=== PATIENT | female | born 1960 | race Caucasian/White ===

== ENCOUNTER → 2022-01-03 | Outpatient (CLI) | payer MEDICARE ==
[~2022-01-03] MED LIST: ASPI81CH PO; ATOR40TA PO; DULO30 PO; GABA300 PO; HYDHCL25 PO; HYDROCHLOROTHIA25 MG PO; INSULANI SC; LISI20 PO; MONT10T PO; MORP30ER PO; OMEP20ER PO; OXYC15ER PO; PROM25 PO; SULTRIDS PO; TRAZ50 PO
[2022-01-03 14:57] LABS: Source, Urine Clean Catch
[2022-01-03 17:50] LABS: Appearance, Urine Clear (Clear); Bilirubin, Urine Neg (Neg); Blood, Urine 1+ (Neg); Color, Urine Yellow (P-Yellow); Glucose Qualitative, Urine Neg (Neg); Ketones, Urine Neg (Neg); Leukocyte Esterase, Urine 2+ (Neg); Nitrite, Urine Neg (Neg); Protein, Urine Neg (Neg); Urobilinogen, Urine NORM (Normal)
[2022-01-03 18:05] LABS: Bacteria Many /hpf; Red Blood Cells, Urine 0-2 /hpf (0-2); Squamous Epithelial Cells Mod /hpf (Few); White Blood Cells, Urine 25-50 /hpf (0-5)
[2022-01-03 18:06] LABS: Transitional Epithelial Cells Rare /hpf (0-Rare)
== END ==
LOC: EDSTATUS 08:27 → LAB 14:56 → LAB SHORT 14:56
PROVIDERS: Nurse Practitioner Family
DX: R31.9 Hematuria, unspecified (principal)
CPT/HCPCS: 81001; 87086

== ENCOUNTER 2022-06-19 01:43 | Day surgery (SDC) | payer MEDICARE ==
[~2022-06-19 01:43] MED LIST changes: -ASPI81CH PO; -PROM25 PO; -SULTRIDS PO
== END 2022-06-19 23:59 | disposition home or self-care (01) ==
LOC: WOUND 01:43
DX: L98.411 Non-pressure chronic ulcer of buttock limited to breakdown of skin (principal); I10 Essential (primary) hypertension; J44.9 Chronic obstructive pulmonary disease, unspecified; E11.9 Type 2 diabetes mellitus without complications
CPT/HCPCS: G0463

== ENCOUNTER 2022-07-18 11:03 | Day surgery (SDC) | payer MEDICARE ==
[~2022-07-18] VITALS: Ht 167.6 cm; Wt 122.0 kg
--- NOTE | 2022-07-18 13:58 | NUR ---
Ambulatory in Day Surgery. Patient confirms NPO status and agrees with scheduled surgery. Patient reports completing Chlorhexadine shower X2 prior to admission to hospital. Lungs clear T/O to Auscultation. Pre-Op teaching done. Pt verbalizes understanding.
--- NOTE | 2022-07-18 14:35 | NUR ---
07/18/22 1435 Belkis Rubio PATIENT RECEIVED VANCO 1GM IN THE PREOP SETTING PRIOR TO ARRIVING TO THE OR.
--- NOTE | 2022-07-18 17:44 | NUR ---
POST OP: REPORT RECEIVED FROM YARDAGE ESTIMATOR. PT TO UNIT AT 1715, PT A/O, VSS. REPORT NUMBNESS TO LEGS, UNABLE TO MOVE, SPINAL. SURGICAL SITE WNL. DENIES PAIN. TOLERATING PO.
--- NOTE | 2022-07-18 18:56 | NUR ---
SUMMARY: DOING WELL SINCE POST OP. NO ACUTE CHANGE. PT GAINING MORE FEELING BACK IN LEGS AND ABLE TO MOVE THEM. HAS DENIED NEED FOR PAIN MED SO FAR. ATE ALL OF DINNER, DRINKING FLUIDS. DOES NOT FEEL THE URGE TO VOID YET. REPORT PASSED TO NOC MOIZ LANDRY.
--- NOTE | 2022-07-19 04:16 | NUR ---
POD1 FOR A RIGHT TKA. GAUZE AND TONY WRAP ARE C/D/I. VSS. THE PATIENTS PAIN HAS BEEN DIFFICULT TO MANAGE DESPITE ADMINISTERING PRN MEDICATION AND SCHEDULED PAIN MEDICATION. PT ENCOURAGED AND EDUCATED TO AMBULATE AND REPOSITION T/O THE SHIFT. THE PATIENT WAS VERY HESITENT TO ATTEMPT ANY NONPHARMACOLOGICAL METHODS, BUT WAS ABLE TO AMBULATE TO THE BATHROOM ONCE AND VOID W/O DIFFICULTY. THE [facility] MACHINE HAS REMAINED IN PLACE T/O THE NIGHT. THE PATIENT DID NOT FALL ASLEEP UNTIL ABOT 0300 DUE TO DISCOMFORT. THE PT TOLLERATED PO INTAKE T/O THE SHIFT W/O ANY N/V. DENIES PASSING FLATTUS. AWAITING PT EVALUATION THIS AM AND FURTHER ORDERS FOR DISCHARGE. THE PATIENT IS CURRENTLY SLEEPING, IN NO DISTRESS. CALL LIGHT IN REACH.
[2022-07-19 07:14] LABS: BASOPHILS ABSOLUTE AUTO 0.05 K/mm3 (0.00-0.23); BASOPHILS PERCENT AUTO 1 % (0-2); EOSINOPHILS ABSOLUTE AUTO 0.29 K/mm3 (0.00-0.68); EOSINOPHILS PERCENT AUTO 3 % (0-6); Hematocrit 36.9 % (33.0-51.0); Hemoglobin 12.4 g/dL (11.5-16.0); IMMATURE GRAN ABSOLUTE AUTO 0.04 K/mm3 (0.00-0.10); IMMATURE GRAN PERCENT AUTO 0 % (0-1); LYMPHOCYTES ABSOLUTE AUTO 1.67 K/mm3 (0.84-5.20); LYMPHOCYTES PERCENT AUTO 16 % (21-46); MONOCYTES ABSOLUTE AUTO 0.84 K/mm3 (0.16-1.47); MONOCYTES PERCENT AUTO 8 % (4-13); Mean Corpuscular HGB 26.1 pg (26.0-34.0); Mean Corpuscular HGB Conc 33.6 g/dL (31.5-36.5); Mean Corpuscular Volume 78 fL (80-100); Mean Platelet Volume 9.4 fL (9.1-12.4); NEUTROPHILS PERCENT AUTO 72 % (41-73); Platelet Count 316 K/mm3 (150-400); RDW Coefficient Variation 14.1 % (11.7-14.2); RDW Standard Deviation 39.7 fL (35.1-46.3); Red Blood Cell Count 4.75 M/mm3 (3.80-5.20); White Blood Cell Count 10.49 K/mm3 (4.00-11.30)
[2022-07-19 07:29] LABS: Bun/Creatinine Ratio 13.9 (12.0-20.0); Calcium, Blood 8.5 mg/dL (8.5-10.1); Creatinine, Blood 0.94 mg/dL (0.40-1.00); Magnesium, Blood 1.8 mg/dL (1.6-2.4); Potassium, Blood 2.9 mmol/L (3.5-5.5)
[2022-07-19] MEDS ORDERED: ASPI81CH PO (10:07)
[2022-07-19] MEDS ORDERED: SULTRIDS PO (10:07)
[2022-07-19] MEDS ORDERED: PROM25 PO (10:08)
--- NOTE | 2022-07-19 12:04 | NUR ---
1202 discharged home with son and . pt reports current pain level is 7/10 which is where she expected to be post op. pt up in room with walker and standby assist. right knee dressing with scant bloody drainage. casey po food and fluids without nausea. voiding clear yellow urine. pt in agreement with plan to discharge home
== END 2022-07-19 12:03 | disposition home or self-care (01) ==
LOC: ORSCMMR 11:03 → SURS 17:21 → ORSCMMR 07-19 12:03
PROVIDERS: Orthopaedic Surgery
PROC: 0SRC0J9 Replacement of Right Knee Joint with Synthetic Substitute, Cemented, Open Approach (ICD-10-PCS; principal; 2022-07-18 14:15)
DX: M17.11 Unilateral primary osteoarthritis, right knee (principal); I10 Essential (primary) hypertension; Z87.891 Personal history of nicotine dependence; K21.9 Gastro-esophageal reflux disease without esophagitis; E11.9 Type 2 diabetes mellitus without complications; F41.9 Anxiety disorder, unspecified; Z79.899 Other long term (current) drug therapy; F84.0 Autistic disorder; E66.01 Morbid (severe) obesity due to excess calories; Z68.41 Body mass index [BMI] 40.0-44.9, adult
CPT/HCPCS: 36415; 73560-RT; 80048; 82947; 83735; 85025; 97110; 97116; 97162; 97530; A9270; C1713; C1776; J0171; J0690; J0735; J1170; J1815; J1885; J2250; J2370; J2704; J2795; J3010; J3370; J7050; J7120

== ENCOUNTER 2022-08-13 20:54 | Emergency (ER) | payer MEDICARE ==
[~2022-08-13] VITALS: Ht 170.2 cm; Wt 123.4 kg
[~2022-08-13 20:54] MED LIST changes: +ASPI81CH PO; +PROM25 PO; +SULTRIDS PO
[2022-08-13] MEDS ORDERED: Ativan0.5 MG PO (22:00)
== END 2022-08-13 21:55 | disposition home or self-care (01) ==
LOC: ER 20:54
DX: F41.0 Panic disorder [episodic paroxysmal anxiety] (principal); Z88.8 Allergy status to other drugs, medicaments and biological substances; Z79.899 Other long term (current) drug therapy; Z79.4 Long term (current) use of insulin; Z79.82 Long term (current) use of aspirin
CPT/HCPCS: 99284